=== PATIENT | female | born 1975 | race Caucasian/White ===

== ENCOUNTER → 2016-09-26 | Outpatient (REF) | payer BC | LOC: M LAB REF 17:04 | PROVIDERS: ATTEND Specialist | DX: Z34.83 Encounter for supervision of other normal pregnancy, third trimester (principal) ==

== ENCOUNTER → 2016-10-31 | Outpatient (REF) | payer BC | LOC: M LAB REF 16:51 | PROVIDERS: ATTEND Advanced Practice Midwife | DX: Z34.83 Encounter for supervision of other normal pregnancy, third trimester (principal) ==

== ENCOUNTER 2016-11-23 23:28 | Inpatient (IN) | payer BC ==
[~2016-11-23] VITALS: Ht 172.7 cm; Wt 76.0 kg
[2016-11-23 23:42] VITALS: BP 138/82
[2016-11-23] MEDS ORDERED: PRENTAB9 PO (23:50)
[2016-11-24] VITALS (17 sets, daily range): BP systolic 124–171; BP diastolic 68–103
[2016-11-24] MEDS ORDERED: PENICILLIN G POTASSIUM IV 5 MU in D5W MINI-BAG PLUS 100 ML IV STA (00:45)
[2016-11-24 01:17] LABS: MEAN CORPUSCULAR HEMOGLOBIN 30.2 pg (27.0-33.0); MEAN CORPUSCULAR HGB CONC 33.2 g/dl (32.0-36.5); MEAN CORPUSCULAR VOLUME 90.9 fl (80.0-96.0); RED CELL DISTRIBUTION WIDTH 13.1 % (11.5-14.5); WHITE BLOOD COUNT 9.1 K/mm3 (4.0-10.0)
[2016-11-24] MEDS: PENICILLIN G POTASSIUM IV 2.5 MU in D5W 100 ML IV SCH ×5 (05:11→22:01)
--- NOTE | 2016-11-24 05:58 | HPE ---
DATE OF ADMISSION: 11/24/2016 HISTORY OF PRESENT ILLNESS: 40-year-old G7,P4 ( 7, para 4) female at 39-1/7 weeks gestation by last menstrual period (LMP) consistent with seven week ultrasound, estimated date of confinement (EDC) 11/30/2016, presents with loss of fluid from vagina since 06:30 p.m. the evening prior to admission. The amount of leakage was small but continued. It increased throughout the evening. She had a slight bit of pink, vaginal discharge. COURSE: The patient initiated care at [facility]. She initiated care in [place] on 06/27/2017 at 17 weeks gestation. Her first term blood pressure on that visit was 114/70. The remainder of her course was unremarkable. OBSTETRICAL HISTORY: 1. June 2003, 38 week vaginal delivery of 6 pound, 10 ounce male infant. 2. January 2007, 40 week vaginal delivery of 7 pound, 8 ounce male infant. 3. July 2009, 40 week vaginal delivery 6 pound, 14 ounce female infant. 4. 2011, 40 week vaginal delivery 7 pound, 10 ounce male infant. 5. January 2014 miscarriage. 6. August 2014 miscarriage. PAST MEDICAL HISTORY: Ulcerative colitis. PAST SURGICAL HISTORY: 1. Breast lumpectomy 1998. 2. Appendectomy. ALLERGIES: No known drug allergies. SOCIAL HISTORY: The patient is . She lives in [place], [place]. She denies cigarettes, alcohol or drug use. FAMILY HISTORY: Noncontributory. PHYSICAL EXAMINATION: VITAL SIGNS: Blood pressure 130/74, pulse 80. GENERAL: She appears mildly uncomfortable. HEAD/NECK: Unremarkable. LUNGS: Clear. HEART: Regular rate and rhythm. ABDOMEN: Nontender, gravid. HEART TONES: Category 1. Contractions every 2-5 minutes. STERILE SPECULUM EXAM: Small pool, positive ferning, positive Nitrazine. Cervix is 3 cm, 50% effaced, minus 2 station, vertex. EXTREMITIES: Nontender. LABORATORY DATA: A positive, Rubella immune, RPR nonreactive. Hepatitis B and C negative. HIV negative. Diabetes screen 94. Group B Streptococcus (GBS) positive on 10/31/2016. ASSESSMENT: 40-year-old G7, P4 female at 39-1/7 weeks gestation presents with spontaneous rupture of membranes in early labor. PLAN: Admit on 11/24/2016. The patient will receive intravenous antibiotics for GBS positive status.
[2016-11-24] MEDS ORDERED: LR 1,000 ML IV SCH (09:01)
[2016-11-24] MEDS ORDERED: OXYTOCIN DRIP 30 UNITS in APPROPRIATE DILUENT 1 EA IV SCH (09:15)
[2016-11-24] MEDS ORDERED: OXYTOCIN 30 UNITS IN 0.9% NaCl 500ML IV BAG (J2590) As Ordered ONE ×2 (15:45→17:23)
[2016-11-24] MEDS ORDERED: FENTANYL 2MCG/ML ROPIVACAINE 0.2% IN 0.9% NACL 200ML IVBAG As Ordered ONE (17:52)
[2016-11-24] MEDS ORDERED: METHYLERGONOVINE MALEATE 0.2 MG/ML VIAL (J2210) As Ordered ONE (22:39)
[2016-11-24] MEDS ORDERED: METHYLERGONOVINE MALEATE 0.2 MG/ML VIAL (J2210) IM ONE (23:00)
[2016-11-24] MEDS ORDERED: MOM 30ML SUSPENSION UDC PO PRN (23:00)
[2016-11-24] MEDS ORDERED: ACETAMINOPHEN 500 MG TAB PO PRN (23:00)
[2016-11-24] MEDS ORDERED: DOCUSATE SODIUM 100 MG CAP PO PRN (23:00)
[2016-11-24] MEDS ORDERED: MEASLES,MUMPS,RUBELLA VACCINE INJ (MMR-II) (90707) SC SCH (23:00)
[2016-11-24] MEDS ORDERED: ANUSOL HC CREAM 30GM TOP PRN (23:00)
[2016-11-24] MEDS ORDERED: DIBUCAINE 1% OINTMENT 30GM TOP PRN (23:00)
[2016-11-24] MEDS ORDERED: RHOGAM 300 MCG (1500 IU) INJ (J2790) IM SCH (23:00)
--- NOTE | 2016-11-24 23:14 | DN ---
DATE: 11/24/2016 Spontaneous rupture of membranes, clear fluid, 11/23/2016, at 1830. Pitocin augmentation and epidural for labor coping. Fully dilated and spontaneous rupture of forebag at 2209. Viable male delivered, direct occiput posterior (OP) through loose nuchal cord at 2229. Spontaneous respirations with stimulation. Transitioned on maternal abdomen. Cord doubly clamped and cut after 1 minute when large gush of placental bleeding occurred. Apgars were 9 and 9. Placenta [place] intact with 3-vessel cord and trailing membranes at 2235. Fundus firmed with massage and intravenous (IV) Pitocin. Lower uterine segment remained boggy. Cervix swept of clots. Methergine 0.2 mg intramuscular (IM) given. Estimated blood loss 400 mL. First-degree perineal laceration repaired with #3-0 Vicryl Rapide. weight 8 pounds 10 ounces, 3904 grams. Sponge, sharp, and instrument count correct. Mom and baby doing well.
[2016-11-25 00:54] VITALS: BP 142/67
[2016-11-25] MEDS: IBUPROFEN 800 MG TAB PO PRN ×3 (01:59→17:55)
[2016-11-25] MEDS: METHYLERGONOVINE MALEATE 0.2 MG TAB PO SCH ×4 (03:14→20:23)
[2016-11-25 06:25] VITALS: BP 138/89
[2016-11-25 09:00] VITALS: BP 133/71
[2016-11-25] MEDS: PRENATAL VITAMIN TAB PO SCH (09:04)
[2016-11-25 18:10] VITALS: BP 144/78
[2016-11-26] MEDS: METHYLERGONOVINE MALEATE 0.2 MG TAB PO SCH (02:48)
[2016-11-26 06:00] VITALS: BP 138/73
[2016-11-26] MEDS ORDERED: METHYLERGONOVINE MALEATE 0.2 MG TAB PO PRN (07:30)
[2016-11-26] MEDS: PRENATAL VITAMIN TAB PO SCH ×2 (07:39→07:41)
[2016-11-26] MEDS: IBUPROFEN 800 MG TAB PO PRN (07:40)
[2016-11-26] MEDS ORDERED: ACET50TA PO (10:57)
[2016-11-26] MEDS ORDERED: IBUP600T26 PO (10:57)
[2016-11-26] MEDS ORDERED: MILKSUS PO (10:57)
[2016-11-26] MEDS ORDERED: COLA100C3 PO (10:57)
== END 2016-11-26 14:15 | disposition home or self-care (01) | DRG 560 ==
LOC: M LDO 23:28 → M LDI 11-24 00:43 → M OBS 11-25 00:34
PROVIDERS: ADMIT Specialist; ATTEND Specialist
PROC: 10E0XZZ Delivery of Products of Conception, External Approach (ICD-10-PCS; principal; 2016-11-24)
PROC: 0HQ9XZZ Repair Perineum Skin, External Approach (ICD-10-PCS; 2016-11-24)
DX: O42.02 Full-term premature rupture of membranes, onset of labor within 24 hours of rupture (principal); O99.820 Streptococcus B carrier state complicating pregnancy; O09.523 Supervision of elderly multigravida, third trimester; Z37.0 Single live birth; Z3A.39 39 weeks gestation of pregnancy; O70.0 First degree perineal laceration during delivery